=== PATIENT | female | born 1985 | race Two or more races ===

== ENCOUNTER → 2020-06-26 | Outpatient (CLI) | payer OTHER | END | disposition home or self-care (01) | LOC: MSC 13:05 | PROVIDERS: ATTEND Internal Medicine | DX: Z00.00 Encounter for general adult medical examination without abnormal findings (principal); F41.9 Anxiety disorder, unspecified; G47.00 Insomnia, unspecified ==

== ENCOUNTER 2020-10-27 11:45 | Outpatient (CLI) | payer OTHER | END 2020-10-27 23:59 | disposition home or self-care (01) | LOC: MSC 11:45 | PROVIDERS: ATTEND Internal Medicine | DX: L65.9 Nonscarring hair loss, unspecified (principal); G47.00 Insomnia, unspecified; R39.15 Urgency of urination; Z80.9 Family history of malignant neoplasm, unspecified; R35.0 Frequency of micturition; R59.9 Enlarged lymph nodes, unspecified ==

== ENCOUNTER → 2021-01-26 | Outpatient (CLI) | payer OTHER | END | disposition home or self-care (01) | LOC: MSC 09:30 | PROVIDERS: ATTEND Internal Medicine | DX: L65.9 Nonscarring hair loss, unspecified (principal); N64.89 Other specified disorders of breast; F41.9 Anxiety disorder, unspecified; G47.00 Insomnia, unspecified ==

== ENCOUNTER → 2021-02-16 | Outpatient (CLI) | payer OTHER | END | disposition home or self-care (01) | LOC: MSC 11:00 | PROVIDERS: ATTEND Internal Medicine | DX: K21.9 Gastro-esophageal reflux disease without esophagitis (principal); L65.9 Nonscarring hair loss, unspecified; F41.9 Anxiety disorder, unspecified; G47.00 Insomnia, unspecified ==